=== PATIENT | female | born 1975 | race Caucasian/White ===

== ENCOUNTER 2017-04-29 19:02 | Emergency (ER) | payer MEDICARE ==
[~2017-04-29 19:02] MED LIST: ISOVUE-370 76%-LOCM 1 ML ONE
--- NOTE | 2017-04-29 23:15 | CT ---
CT SOFT TISSUES OF THE NECK: Indication: Sore throat with difficulty coughing. Comparison: None. Technique: Multiple CT images were obtained of the soft tissue neck with IV contrast. Axial, coronal, and sagittal reformatted images were provided. FINDINGS: There is 1.1 cm abscess involving the superior aspect of the right palatine tonsil on image 24 of ser ies 2. The parapharyngeal space is within normal limits. Shoddy appearing lymph nodes are seen within the upper aspect of the neck. Submandibular, parotid and thyroid glands appear within normal limits. Visualized vasculature appears within normal limits. Visualized aspects of the posterior fossa are u nremarkable. Visualized paranasal sinuses are clear. Mastoid air cells are clear. No acute osseous abnormality is seen involving the cervical spine. There is mild degenerative changes seen at C5-6. IMPRESSION: 1. Small abscess involving the superior aspect of the right palatine tonsil extending into the slide fastener chain assembler olateral aspect of the soft palate. 2. No additional acute abnormality. POS: [facility]
[2017-04-29] MEDS ORDERED: Dexamethasone 4 mg/ml Vial ONE (23:29)
[2017-04-29] MEDS ORDERED: Clindamycin/D5W 600 mg/50 ml Premix Bag ONE (23:38)
== END 2017-04-30 00:40 | disposition home or self-care (01) ==
LOC: ERS 19:02
DX: J36 Peritonsillar abscess (principal); F17.210 Nicotine dependence, cigarettes, uncomplicated; F41.9 Anxiety disorder, unspecified; F32.9 Major depressive disorder, single episode, unspecified; Z79.891 Long term (current) use of opiate analgesic; Z79.899 Other long term (current) drug therapy
CPT/HCPCS: 70491; 87081; 87430; 87804; 96365; 96375; 99406; J1100; J3490

== ENCOUNTER 2018-02-23 14:08 | Emergency (ER) | payer MEDICARE ==
[2018-02-23 15:12] LABS: Bilirubin Negative (Negative); Blood, Urine Small (Negative); Clarity CLEAR (Clear); Glucose, Urine (Dipstick) Negative (Negative); Leukocyte Negative (Negative); Nitrite Negative (Negative); Protein, Urine (Dipstick) Negative (Neg-Trace); Specific Gravity, Urine 1.006 (1.002-1.036); Urobilinogen 0.2 mg/dL (0.2-1.0)
[2018-02-23 15:14] LABS: Pregnancy Test - Urine (BHCG) Negative (Negative); Pregu Control Background? CLEAR/WHITE (CLR/WHITE); Pregu Control Bar Appear? YES (CONTROL BAR); Specific Gravity 1.006 (1.002-1.036)
[2018-02-23 15:15] LABS: Bacteria/HPF 1+ HPF (None Seen); Hyaline Casts/LPF 0-3 HYALINE CAST LPF (0-3 Hyaline); Pathc Cast-AUWi Flag 0.14 (0-2.49); RBC/HPF 0-3 HPF (0-3)
[2018-02-26 00:57] LABS: Chlamydia by PCR Not Detected (NotDetected); GC by PCR Not Detected (NotDetected)
== END 2018-02-23 16:15 | disposition home or self-care (01) ==
LOC: ERS 14:08
DX: H00.014 Hordeolum externum left upper eyelid (principal); B37.3 Candidiasis of vulva and vagina; F41.9 Anxiety disorder, unspecified; Z71.6 Tobacco abuse counseling
CPT/HCPCS: 81003; 81015; 81025; 87480; 87491; 87510; 87591; 87660; 99406

== ENCOUNTER 2018-03-10 09:16 | Outpatient (CLI) | payer MEDICARE ==
[2018-03-10 10:52] LABS: BHCG - Serum Negative (NEGATIVE); Pregs Control Background? CLEAR/WHITE (CLR/WHITE); Pregs Control Bar Appear? YES (CONTROL BAR)
== END 2018-03-10 09:17 | disposition home or self-care (01) ==
LOC: LABBT 09:16
PROVIDERS: ATTEND Neurological Surgery
DX: Z01.818 Encounter for other preprocedural examination (principal); M54.12 Radiculopathy, cervical region
CPT/HCPCS: 84703

== ENCOUNTER 2018-03-12 05:40 | Day surgery (SDC) | payer MEDICARE ==
[2018-03-10 09:42] VITALS: BMI 25.5
--- NOTE | 2018-03-11 14:27 | HP ---
DATE OF ADMISSION: 03/12/2018 HISTORY OF PRESENT ILLNESS: Ms. Stephenson presents today with a C6 radiculopathy in the setting of an MRI from [facility] that reveals degenerative disk disease at C5-C6. She has treated this nonsur gically with epidural steroid injections, physical therapy and medications and hopes to at some point move forward with surgery if possible as her pain continues to persist. PAST MEDICAL HISTORY: Significant for depression, anxiety and migraine headaches. PAST SURGICAL HISTORY: None. CURRENT MEDICATIONS: Lexapro and [place]. ALLERGIES: No known drug allergies. PHYSICAL EXAMINATION: NEUROLOGIC: The patient is alert and oriented x3. Positive Spurling's maneuver to the left. Normal 5/5 strength in the bilateral upper extremities. ASSESSMENT: Cervical radiculopathy. PLAN: Dr. Rowley met with the patient, reviewed imaging and advocated for C5-C6 ACDF. He explained t o the patient the risks, benefits and alternatives to the procedure. The patient expressed understan ding and would like to move forward with surgery as discussed. I do believe that the patient is ment ally competent and capable of making medical decisions for herself. We will move forward with anmol bowman as planned.
[2018-03-12] MEDS ORDERED: CEFAZOLIN 2 GM/50 ML BAG ONE ×2 (06:08→10:35)
[2018-03-12] MEDS ORDERED: Thrombin 5000 UNITS/5 ML VIAL ONE (06:18)
[2018-03-12] MEDS ORDERED: Fentanyl 250 MCG/5 ML VIAL ONE (06:40)
[2018-03-12] MEDS ORDERED: Midazolam HCl 2 mg/2 ml Vial ONE (06:58)
[2018-03-12] MEDS ORDERED: Albuterol Sulfate HFA (OR ONLY) ONE (07:43)
[2018-03-12] MEDS ORDERED: Promethazine HCl 25 MG/ML VIAL ONE (08:37)
[2018-03-12] MEDS ORDERED: Fentanyl 100 MCG/2 ML VIAL ONE ×2 (08:42→09:29)
--- NOTE | 2018-03-12 09:13 | OP ---
DATE OF PROCEDURE: 03/12/2018 SURGEON: Arias Rowley M.D. ANNEALING OVEN OPERATOR: Abhishek Warren PA-C. INDICATION: Pain. DIAGNOSES: Cervical radiculopathy and degenerative disk disease. PROCEDURE: Anterior cervical discectomy and fusion, C5-C6. ANESTHESIA: General. TECHNIQUE: The patient was brought into the operating room and placed under general anesthesia. She was placed on the table in supine position. A transverse incision was planned over the lateral aspe ct of the neck on the right. After prepping and draping and after an appropriate operative pause, th e incision was created. The underlying platysma muscles identified and incised. A blunt tissue plan e anterior to the sternocleidomastoid muscle was used to gain access to the prevertebral space. Self -retaining retractors were placed in the wound for optimal exposure. A C-arm image was obtained to c onfirm the appropriate level. An annulotomy was then performed in the C5-C6 disk space. All disk ma terial as well as anterior and posterior osteophytes were removed. After decompression of the C5-C6 segment, a 6 mm lordotic PEEK cage packed with allograft and autograft material was placed within the interbody space. An anterior cervical plate was then fashioned to the front of the spine and secure d with a total of 4 fixed screws. Midline and lateral structures were then inspected and found to be free from significant trauma. The wound was irrigated. Hemostasis was maintained throughout. The wound was then closed in anatomic layers and a pressure dressing was applied. There were no known pr ocedural complications.
[2018-03-12] MEDS ORDERED: Ondansetron PF 4 MG/2 ML Vial ONE (16:43)
[2018-03-12] MEDS ORDERED: Glycopyrrolate 0.2 MG/ML 5 ML SYRINGE ONE (16:43)
[2018-03-12] MEDS ORDERED: PHENYLEPHRINE-NS 100 MCG/ML 10 ML SYRINGE ONE (16:43)
[2018-03-12] MEDS ORDERED: Dexamethasone 20 MG/5 ML VIAL ONE (16:43)
[2018-03-12] MEDS ORDERED: PROPOFOL 200 MG/20 ML VIAL ONE (16:43)
[2018-03-12] MEDS ORDERED: Succinylcholine Chloride 20 MG/ML 10 ml SYRINGE FS ONE (16:43)
[2018-03-12] MEDS ORDERED: Lidocaine 1% PF 5 ML VIAL ONE (16:43)
[2018-03-12] MEDS ORDERED: PROVENTIL INHALER 6.7 G (200 INHALATIONS) ONE (16:43)
== END 2018-03-12 11:10 | disposition home or self-care (01) ==
LOC: SDC 05:40
PROVIDERS: ATTEND Neurological Surgery
PROC: 0RG10A0 Fusion of Cervical Vertebral Joint with Interbody Fusion Device, Anterior Approach, Anterior Column, Open Approach (ICD-10-PCS; principal; 2018-03-12)
PROC: 0RT30ZZ Resection of Cervical Vertebral Disc, Open Approach (ICD-10-PCS; 2018-03-12)
DX: M50.122 Cervical disc disorder at C5-C6 level with radiculopathy (principal); F32.9 Major depressive disorder, single episode, unspecified; F41.9 Anxiety disorder, unspecified; G43.909 Migraine, unspecified, not intractable, without status migrainosus; Z79.899 Other long term (current) drug therapy
CPT/HCPCS: 20930; 20936; 22551; 22845; 22853; 76001; 96374 ×2; C1713; C1776; J0131; J1100; J2001; J2250; J2405; J2550; J2704; J3010

== ENCOUNTER 2018-05-14 14:59 | Emergency (ER) | payer MEDICARE ==
[2018-05-14] MEDS ORDERED: HYDROcodone/Acetaminophen 10/325 mg Tablet ONE (17:03)
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
== END 2018-05-14 15:37 | disposition home or self-care (01) ==
LOC: ERS 14:59
DX: M54.5 Low back pain (principal); M54.2 Cervicalgia; F41.9 Anxiety disorder, unspecified; F32.9 Major depressive disorder, single episode, unspecified; F17.210 Nicotine dependence, cigarettes, uncomplicated; Z79.899 Other long term (current) drug therapy; V49.9XXA Car occupant (driver) (passenger) injured in unspecified traffic accident, initial encounter
CPT/HCPCS: 72100; 72125

== ENCOUNTER 2018-08-18 07:43 | Outpatient (CLI) | payer MEDICARE ==
--- NOTE | 2018-08-18 08:41 | MRI ---
MRI Cervical spine without contrast: HISTORY: Neck pain with pain radiating to arm. Weakness in left arm. COMPARISON: CT cervical spine 05/14/2018 FINDINGS: The craniocervical junction is unremarkable. No significant cord signal abnormality. No prior exam, there is metallic susceptibility artifact related to anterior cervical fusion at the C 5-6 level with intradiscal prosthesis. There is otherwise normal signal intensity demonstrated in the bone marrow. C1-2:No significant stenosis. C2-3:Mild uncinate process hypertrophy is seen on the left resulting in mild left-sided neural forami nal narrowing and mild effacement of the anterolateral aspect of the ventral subarachnoid space. Right neural foramen is patent. C3-4:There is mild uncinate process hypertrophy bilaterally with associated mild disc osteophyte comp meenakshi. This results in mild effacement of the ventral subarachnoid space. Mild bilateral neural foraminal narrowing is present. C4-5:There is a mild disc osteophyte complex. This narrows the ventral subarachnoid space. Mild to mo derate bilateral neural foraminal narrowing is present greater on the left. C5-6:There is posterior osteophyte formation which narrows the ventral subarachnoid space. There does appear to be moderate bilateral neural foraminal narrowing due to bony encroachment. C6-7: There is broad-based disc osteophyte complex with uncinate process hypertrophy on the left. Thi s does narrow the ventral subarachnoid space with very slight mass effect on the left anterolateral aspect of the spinal cord. There is normal signal intensity in the spinal cord. Mild right and modera te left-sided neural foraminal narrowing is present. C7-T1:There is no disc bulge or disc herniation. The central spinal canal and neural foramina are pat ent. IMPRESSION: 1. Postsurgical changes related to anterior cervical fusion at the C5-6 level. 2. Multilevel degenerative changes as described above.
== END 2018-08-18 07:44 | disposition home or self-care (01) ==
LOC: TBSIIMAG 07:43
PROVIDERS: ATTEND Neurological Surgery
DX: M47.22 Other spondylosis with radiculopathy, cervical region (principal); Z98.1 Arthrodesis status
CPT/HCPCS: 72141

== ENCOUNTER 2019-02-19 10:52 | Outpatient (CLI) | payer MEDICARE ==
--- NOTE | 2019-02-19 14:07 | RAD ---
CERVICAL SPINE 5 VIEWS: Date: 02/19/19 HISTORY: Neck pain. FINDINGS: Postoperative changes are noted. Anterior plate and screws transfix C5-6. Interbody implant appears a dequately positioned. There is mild posterior spondylosis at this level. Alignment appears preserved with flexion and extension. IMPRESSION: Postoperative changes at C5-6 as noted. POS: [facility]
== END 2019-02-19 10:53 | disposition home or self-care (01) ==
LOC: BICRAD 10:52
PROVIDERS: ATTEND Neurological Surgery
DX: M54.2 Cervicalgia (principal); Z98.890 Other specified postprocedural states
CPT/HCPCS: 72050

== ENCOUNTER 2019-03-06 08:04 | Outpatient (CLI) | payer MEDICARE ==
--- NOTE | 2019-03-06 11:16 | MRI ---
MRI CERVICAL SPINE WITHOUT CONTRAST: COMPARISON: 08/18/2018. CLINICAL INDICATION: Cervical radiculopathy. FINDINGS: Redemonstration of susceptibility artifact related to ACDF at the C5-6 levels. Evaluation of the cer vical spinal cord reveals a grossly stable appearance without interval evidence of expansile process or interval focal intramedullary signal abnormality of significance. The C1-2 and C2-3 levels are grossly stable, with mild degenerative hypertrophy at C1-2, and left asy mmetric osteophyte at C2-3 along with left uncinate process hypertrophy producing mild left foraminal narrowing and mild stenosis of the left subarticular zone. C3-4: Redemonstration of disk-osteophyte and uncinate process hypertrophy bilaterally, greater on th e left. This results in mild effacement of the ventral thecal sac, and mild to moderate bilateral ne ural foraminal narrowing. C4-5: Disk-osteophyte complex with mild effacement of the ventral spinal cord and moderate bilateral neural foraminal stenosis. C5-6: Grossly stable postoperative appearance and broad-based osteophyte ridge effacing ventral thec al sac, and moderate bilateral neural foraminal stenosis, similar-appearing. C6-7: Left asymmetric disk-osteophyte is grossly stable with mild ventral left hemicord effacement. Moderate left and mild to moderate right neural foraminal narrowing. C7-T1: No significant stenosis. No interval acute marrow edema or significant paraspinous soft tissue edema. IMPRESSION: Grossly stable postoperative cervical spine with multilevel degenerative change, as outlined above. POS: [facility]
== END 2019-03-06 08:05 | disposition home or self-care (01) ==
LOC: TBSIIMAG 08:04
PROVIDERS: ATTEND Neurological Surgery
DX: M47.22 Other spondylosis with radiculopathy, cervical region (principal); M54.2 Cervicalgia; Z98.890 Other specified postprocedural states
CPT/HCPCS: 72141

== ENCOUNTER 2019-10-29 05:45 | Outpatient (CLI) | payer MEDICARE, OTHER ==
[2019-10-30 16:02] LABS: SARS-CoV-2 MS2 Positive; SARS-CoV-2 N Gene Negative; SARS-CoV-2 S Gene Negative; SARS-CoV-2 orf1ab Negative
== END 2019-10-29 05:46 | disposition home or self-care (01) ==
LOC: LABBT 05:45
PROVIDERS: ATTEND Neurological Surgery
DX: Z01.812 Encounter for preprocedural laboratory examination (principal); Z11.59 Encounter for screening for other viral diseases; M54.12 Radiculopathy, cervical region
CPT/HCPCS: 87635; U0003

== ENCOUNTER 2019-11-02 05:31 | Day surgery (SDC) | payer MEDICARE ==
[2019-11-02] MEDS ORDERED: Thrombin 5000 UNITS/5 ML VIAL ONE (06:11)
[2019-11-02] MEDS ORDERED: Fentanyl 100 MCG/2 ML VIAL ONE (06:42)
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
[2019-11-02] MEDS ORDERED: Midazolam HCl 2 mg/2 ml Vial ONE (06:53)
--- NOTE | 2019-11-02 08:44 | OP ---
DATE OF PROCEDURE: 11/02/2019 GENERAL PARTNER: Abhishek Warren PA-C INDICATION: Pain. DIAGNOSIS: Cervical radiculopathy. PROCEDURES PERFORMED: Reoperation, exploration of fusion C5-C6; removal of hardware, C5-C6; anterior cervical diskectomy and fusion, C4-C5; placement of allograft, and placement of autograft. ANESTHESIA: General. DESCRIPTION OF PROCEDURE: The patient was brought into the operating room and placed under general anesthesia. She was placed on table in supine position. A transverse incision was planned over the lateral aspect of the neck on the right. After prepping and draping and after an appropriate preoperative pause, the incision was created. The soft tissues were swept away from midline. The underlying platysma muscle was identified and incised. A blunt tissue plane anterior to the sternocleidomastoid muscle was used to gain access to the prevertebral space. There was significant degree of scar tissue from the patient's prior operative site. After gaining access to the prevertebral space, the plate at C5-C6 was identified. A self-retaining retractor was placed. The C4-C5 annulotomy was performed. All disk material as well as anterior and posterior osteophytes were removed. After completing the decompression, a 7-mm lordotic PEEK cage packed with allograft and autograft material was placed within the interbody space. We then redirected our attention to the level below, where the plate was removed as were for the screws. When the screws broke off within the bone and was retained. An anterior cervical plate was then fashioned across C4-C5, where 3 screws were placed, one was not placed secondary to the retained screw within the bone. The wound was then irrigated. Hemostasis was maintained throughout. The wound was then closed in anatomic layers, and a pressure dressing was applied. There were no known procedural complications. Job ID: [id number]
[2019-11-02] MEDS ORDERED: Lidocaine 1% PF 5 ML VIAL ONE ×2 (11:09)
[2019-11-02] MEDS ORDERED: Ondansetron PF 4 MG/2 ML Vial ONE (11:09)
[2019-11-02] MEDS ORDERED: PROPOFOL 200 MG/20 ML VIAL ONE (11:09)
[2019-11-02] MEDS ORDERED: Rocuronium Bromide 10 MG/ML (10ML VIAL) ONE (11:09)
[2019-11-02] MEDS ORDERED: Albuterol Sulfate HFA (OR ONLY) ONE (11:09)
[2019-11-02] MEDS ORDERED: Glycopyrrolate 0.2 MG/ML 5 ML SYRINGE ONE (11:09)
[2019-11-02] MEDS ORDERED: PHENYLEPHRINE-NS 100 MCG/ML 10 ML SYRINGE ONE (11:09)
== END 2019-11-02 11:10 | disposition home or self-care (01) ==
LOC: SDC 05:31
PROVIDERS: ATTEND Neurological Surgery
PROC: 0PP30JZ Removal of Synthetic Substitute from Cervical Vertebra, Open Approach (ICD-10-PCS; principal; 2019-11-02)
PROC: 0RG10A0 Fusion of Cervical Vertebral Joint with Interbody Fusion Device, Anterior Approach, Anterior Column, Open Approach (ICD-10-PCS; 2019-11-02)
PROC: 0RT30ZZ Resection of Cervical Vertebral Disc, Open Approach (ICD-10-PCS; 2019-11-02)
DX: M54.12 Radiculopathy, cervical region (principal); M48.02 Spinal stenosis, cervical region; F32.9 Major depressive disorder, single episode, unspecified; F41.9 Anxiety disorder, unspecified; G43.909 Migraine, unspecified, not intractable, without status migrainosus; Z79.899 Other long term (current) drug therapy
CPT/HCPCS: 76000; C1713; C1776; J0690; J2001; J2250; J2405; J2704; J3010

== ENCOUNTER 2020-07-05 14:36 | Outpatient (CLI) | payer MEDICARE | END 2020-07-05 14:37 | disposition home or self-care (01) | LOC: BICRAD 14:36 | PROVIDERS: ATTEND Neurological Surgery | DX: M54.2 Cervicalgia (principal); Z98.1 Arthrodesis status; Z98.890 Other specified postprocedural states | CPT/HCPCS: 72050 ==

== ENCOUNTER 2020-11-04 16:07 | Emergency (ER) | payer MEDICARE | END 2020-11-04 16:37 | disposition left against medical advice (07) | LOC: ERS 16:07 | DX: Z53.21 Procedure and treatment not carried out due to patient leaving prior to being seen by health care provider (principal) ==

== ENCOUNTER 2021-05-12 09:01 | Outpatient (CLI) | payer MEDICARE ==
[2021-05-12 19:56] LABS: SARS-CoV-2 PCR by NAA Not Detected (NotDetected)
== END 2021-05-12 09:02 | disposition home or self-care (01) ==
LOC: LABBT 09:01
PROVIDERS: ATTEND Neurological Surgery
DX: Z01.812 Encounter for preprocedural laboratory examination (principal); G56.21 Lesion of ulnar nerve, right upper limb; Z20.822 Contact with and (suspected) exposure to COVID-19
CPT/HCPCS: U0003; U0005

== ENCOUNTER 2021-05-17 05:46 | Day surgery (SDC) | payer MEDICARE ==
[2021-05-10 10:22] VITALS: BMI 26.6
[2021-05-17] MEDS ORDERED: Midazolam HCl 2 mg/2 ml Vial ONE (06:13)
[2021-05-17] MEDS ORDERED: Fentanyl 100 MCG/2 ML VIAL ONE (06:13)
[2021-05-17] MEDS ORDERED: Bupivacaine PF 0.5% 30 ML VIAL ONE (06:37)
[2021-05-17] MEDS ORDERED: EPINEPHrine 1 MG/ML AMP ONE (06:37)
[2021-05-17] MEDS ORDERED: Lidocaine 1% MPF 2 ML VIAL ONE (07:20)
[2021-05-17] MEDS ORDERED: Acetaminophen 500 MG TAB ONE ×2 (07:50)
[2021-05-17] MEDS ORDERED: ceFAZolin 2 GM/Dextrose 50 ML IVPB ONE (07:54)
[2021-05-17] MEDS ORDERED: Dexamethasone 20 MG/5 ML VIAL ONE (08:00)
[2021-05-17] MEDS ORDERED: PROPOFOL 200 MG/20 ML VIAL ONE (08:00)
[2021-05-17] MEDS ORDERED: Lidocaine 1% PF 5 ML VIAL ONE (08:00)
[2021-05-17] MEDS ORDERED: Ondansetron PF 4 MG/2 ML Vial ONE (08:00)
== END 2021-05-17 11:05 | disposition home or self-care (01) ==
LOC: SDC 05:46
PROVIDERS: ATTEND Neurological Surgery
PROC: 01N40ZZ Release Ulnar Nerve, Open Approach (ICD-10-PCS; principal; 2021-05-17)
DX: G56.21 Lesion of ulnar nerve, right upper limb (principal); G43.909 Migraine, unspecified, not intractable, without status migrainosus; Z79.1 Long term (current) use of non-steroidal anti-inflammatories (NSAID); Z79.899 Other long term (current) drug therapy; Z98.1 Arthrodesis status
CPT/HCPCS: J0171; J0690; J2250; J3010; S0020